=== PATIENT | male | born 1950 | race African-American/Black ===

== ENCOUNTER 2021-04-06 09:25 | Emergency (ER) | payer OTHER ==
[2021-04-06 09:40] VITALS: BP 145/90; PULSE 63; TEMP 99; BMI 40.0
[2021-04-06 10:08] LABS: MCH 31.2 pg (25.7-33.7)
[2021-04-06 10:13] LABS: BASO % 5.1 % (0-2.0); EOS % 2.8 % (0-4.5); HEMATOCRIT 41.8 % (35.4-49); HEMOGLOBIN 14.3 GM/dl (11.7-16.9); LYMPH % 33.3 % (8-40); MCHC 34.2 g/dl (32.0-35.9); MEAN CELL VOLUME 91.3 fl (80-96); NEUT % 48.8 % (42.8-82.8); PLATELET COUNT 191 10^3/uL (134-434); RBC 4.57 M/mm3 (4.00-5.60); RDW 13.1 % (11.9-15.9); WHITE BLOOD COUNT 5.5 K/mm3 (4.0-10.8)
[2021-04-06 10:17] LABS: ACTIVATED PTT 30.3 SECONDS (25.2-36.5)
[2021-04-06 10:17] LABS: BILIRUBIN,TOTAL 0.7 mg/dl (0.2-1); CALCIUM 8.8 mg/dl (8.5-10); CREATININE 1.2 mg/dl (0.55-1.3); TOT PROT 7.1 g/dl (6.4-8.2)
[2021-04-06 10:21] LABS: INR 0.98 (0.82-1.09)
[2021-04-06 11:30] LABS: LIPASE 201 U/L (73-393)
== END 2021-04-06 11:55 | disposition home or self-care (01) ==
LOC: FER 09:25
DX: K64.9 Unspecified hemorrhoids (principal)
CPT/HCPCS: 36415; 80053; 82272; 82550; 82553; 83690; 84484; 85025; 85610; 85730; 86850; 86900; 86901; 93005; 99284-25